=== PATIENT | female | born 1965 | race Caucasian/White ===

== ENCOUNTER 2022-04-10 10:30 | Outpatient (CLI) | payer OTHER, SELFPAY ==
--- OUTSIDE RECORDS SUMMARY | 2022-04-10 10:33 | XMS_ITS | Clinical Summary ---
:1965 Author Organization [employer] [facility] [place] [address] Care Team Providers Name Role Phone Leidy Lopez MD Primary Care Provider [phone] Quiana Mortensen MD Unavailable Allergies Active Allergy Reactions Severity Noted Date Comments Latex Rash 01/30/2017 Penicillins Hives 08/27/2006 Adhesive Tape-Silicones Contact Dermatitis 01/30/2017 Medications Medication Sig Dispensed Refills Start Date End Date Status miscellaneous medical As directed. 1 Each 0 08/24/2018 Active supply miscIndications: Automatic blood Hypertension, pressure cuff, unspecified type large arm cuff, diagnosis I10.0 ketoconazole 2% shampoo Apply topically 1 Bottle 0 08/22/2020 Active (NIZORAL) 2 % to affected shampooIndications: area(s). Lather Hyperparathyroidism (HC) on damp scalp, leave on for 5min, then rinse with water. CPAPIndications: JUAREZ CPAP machine 1 Each 11 02/19/2021 Active (obstructive sleep for home use at apnea) pressure 9 cm/H2O, full face mask x1/3month with a full face cushion x1/mo ergocalciferol (VITAMIN Take 1 Capsule 12 capsule. 3 2 Active D2; DRISDOL) 50,000 unit (50,000 units) capsuleIndications: by mouth every Vitamin D deficiency Thursday and . rosuvastatin (CRESTOR) Take 1 Tablet 90 Tablet 3 12/24/2021 Active 10 mg tabletIndications: (10 mg) by Hyperlipidemia, mouth at unspecified bedtime. hyperlipidemia type triamterene-hydrochlorot Take 1 Capsule 90 Capsule 3 2 Active hiazide, 37.5-25 mg, by mouth every (DYAZIDE) 37.5-25 mg morning. capsuleIndications: Hypertension, unspecified type levothyroxine Take 1 Tablet 90 Tablet 3 12/24/2021 A ctive (SYNTHROID) 75 mcg (75 mcg) by tabletIndications: mouth before Hypothyroidism, breakfast. unspecified type citalopram (CELEXA) 20 Take 1 Tablet 90 Tablet 3 12/24/2021 Active mg tabletIndications: (20 mg) by Depression, major, mouth every single episode, mild morning. (HC) durable medical Custom 1 Each 0 03/11/2022 Act pablo equipment functional (DME)Indications: orthotics for Pronation deformity of pronation, also right foot has drop foot and toe pain Active Problems Problem Noted Date Pap smear for cervical cancer screening 12/24/2021 Overview: Plan: Pap and HPV 12/2026 JUAREZ 01/30/2021 AHI-12 02/19/2021 Hypercalcemia 09/12/2020 Overview: Hypercalcemia: mild, not otherwise speci fied, can't rule out FHH. Evaluation: Clinically: incidental finding during f atigue evaluation. PAST MEDICAL HISTORY: no kidney stones, no fractures. Family history: mom with parathyroid is kianna not otherwise specified. (05-23-20): Calcium 10.6 (07-19-20): Calcium 10.7, PTH 82.2 (08-27-20): Uca 60 (1.7 liters collected) , PTH 100.0, D 33.2, Calcium 10.2 Bone mineral density (08-22-20): T-1.9 sp ine, -0.5 radius. Discussion: The Patient's low Uca (with 1.7 liters collected) leaves open the possible rare diagnosis of benign FHH. Operative intervention can typically be delayed in patients over 50 years of age who are asymptomatic or minimally symptomatic and who have serum calcium concentrations <1.0 mg/dL (0.2 mmol/L) above the upper limit of normal. Plan: repeat Uca (to rule out the rare diagnosis of FHH), with likely monitoring of Calcium at present. A) repeat Uca: as above. B) annual Calcium. Routine adult health maintenance 01/30/2017 Overview: Colonoscopy 01/2017 normal repeat in 10 y ears Lumbar spinal stenosis 10/02/2015 Hypothyroidism 07/31/2015 Generalized anxiety disorder 04/01/2012 Elevated BP without diagnosis of hypertension 10/25/19 09 Anxiety state, unspecified 08/27/2006 Resolved Problems Problem Noted Date Resolved Date Adjustment disorder with anxiety 05/24/2010 011 Elevated BP 07/05/2009 07/05/2009 Hypothyroid 02/17/2008 07/31/2015 Encounters Date Type Specialty Care Team Description 04/01/2022 Telephone Leidy Lopez Questions MD Courtney 03/11/2022 Office Visit Meme Crook DPM Foot Problem (Right foot problems diffic ulty to walking) 03/11/2022 Travel 02/26/2022 Orders Only Lab, [facility] 02/26/2022 Travel 02/12/2022 Telephone Leidy Lopez Medication Management MD Courtney 02/05/2022 Telephone Connor Hawkins AuD Question s (regarding hearing aid cos ts) 01/22/2022 Office Visit Connor Hawkins AuD Hearing Problem 01/22/2022 Travel from Last 3 Months Immunizations Name Administration Dates Next Due AMB Influenza, IIV3 (Age >=3 05/23/2010 years)(Flu Clinic Only) AMB Influenza, IIV4 PF (=>6 mos 04/20/2020, 04/30/2018 Flulaval,Fluzone Fluarix)(Flu Clinic Only) COVID-19 vaccine (Moderna 06/25/2021, 10/23/2020, 09/25/2020 100mcg/0.5mL) PF, MDV Hepatitis A (Adult) 02/04/2008 Influenza, IIV3 (Age >=3 years) 04/17/2011, 05/10/2007, 03/22, 04/16/2005, 05/02/2003 Influenza, IIV4 06/17/2019, 07/20/2017, 05/06/2016 MMR 02/04/2008 Td (Age >=7 Years) 04/06/2003 Tdap 12/07/2013 Typhoid (injectable) 02/04/2008 Family History Medical History Relation Name Comments Psychiatric illness Brother 1 Rashel anxiety - on meds Alcohol/Drug Brother 2 Suhas Alcohol/Drug Father drank daily Cancer Father Lung Heart Disease Father Psychiatric illness Father anxiety trie d to manage it with alcohol Cancer-breast Maternal Aunt Heart Disease Mother CA Hypertension Mother Cancer-breast Paternal Aunt Psychiatric illness Sister 1 Karen anxiety Rheum arthritis Sister 1 Karen Psychiatric illness Sister 2 Radha anxiety - us e to be on meds Psychiatric illness Sister 3 Yuly Depression Psychiatric illness Sister 4 Glory Suicide 2008 Relation Name Status Comments Brother 1 Rashel Brother 2 Suhas Daughter Alive [place] Father (Age 70) Maternal Aunt Maternal Grandfather Maternal Grandmother Mother Alive Paternal Aunt Paternal Grandfather Paternal Grandmother Sister 1 Karen Sister 2 Radha Sister 3 Yuly Sister 4 Glory Son Alive Bret Social History Tobacco Use Types Packs/Day Years Used Date Never Smoker Smokeless Tobacco: Never Used Tobacco Cessation: Counseling Given: Yes Alcohol Use Standard Drinks/Week Comments Not Currently 6 (1 standard drink = 0.6 oz pure alcoho l) Alcohol Habits Answer Date Recorded How often do you have a drink containing alcohol? Monthly or less 11/18/2019 How many drinks containing alcohol do you have on a 1 or 2 11/18/2019 typical day when you are drinking? How often do you have six or more drinks on one Never 01/19/2019 occasion? Comment: Not asked Sex Assigned at Date Recorded Not on file COVID-19 Exposure Response Date Recorded In the last 10 days, have you been in contact with No / Unsu re 03/11/2022 10:40 AM CDT someone who was confirmed or suspected to have Coronavirus/COVID-19? Obstetrics History Para Term AB IAB SAB Ectopic Multiple Living Live Births 4 3 2 1 1 2 Date Outcome GA Total Labor/2nd/3rd Weight Sex Delivery Anes PTL Lorie A 1 A5 Name Clin Labor Term Term Para SAB Last Filed Vital Signs Vital Sign Reading Time Taken Comments Blood Pressure 123/84 12/24/2021 11:15 AM CDT Pulse 84 12/24/2021 11:15 AM CDT Temperature 37 ??C (98.6 ??F) 12/31/2020 12:46 PM CDT Respiratory Rate 16 09/12/2020 2:23 PM CDT Oxygen Saturation 99% 12/24/2021 11:15 AM CDT Inhaled Oxygen Concentration - - Weight 94.4 kg (208 lb 1.6 oz) 12/24/2021 11:15 AM CDT Height 171.5 cm (5' 7.5) 12/24/2021 11:15 AM CDT Body Mass Index 32.11 12/24/2021 11:15 AM CDT Plan of Treatment Health Maintenance Due Date Last Done Comments Zoster (shingles) series for age 1206/01/2015 50+ (1 of 2) COVID-19 vaccine series (4 - 08/20/2021 06/25/2021, 021, Booster for Moderna series) 09/25/2020 Influenza for age 50-64 02/20/2022 04/20/2020, 06/17/2019, 04/30/2018, Additional history exists Mammogram for age 45-75 09/13/2022 09/13/2021, 05/03/2020, 10/27/2018, Additional history exists BMI (ht and wt on same day) for 12/24/2022 12/24/2021, 12/21, age 18+ 12/31/2020, Additional history exists Depression screening for age 12+ 12/24/2022 12/24/2021, 05/2021, 03/04/2018, Additional history exists Tetanus booster 12/08/2023 12/07/2013, 04/06/2003 Pap test for age 21-65 12/24/2026 12/24/2021, 12/24/2021, 05/24/2020, Additional history exists Colonoscopy through age 75 01/30/2027 01/30/2017, 7, 01/30/2017 Lipids for age 45-75 02/26/2027 02/26/2022, 12/20/2021, 05/23/2020, Additional history exists Tdap Completed 12/07/2013 Hepatitis C screening for age Completed 05/23/2020 18-79 Procedures Procedure Name Priority Date/Time Associated Diagnosis Comme nts HEMOGLOBIN A1C Routine 02/26/2022 8:37 AM Family history of Re sults for this SCREENING CDT diabetes mellitus procedure are in the results section. LIPID PANEL W Routine 02/26/2022 8:37 AM Hyperlipidemia, Resul ts for this REFLEX MEASURED LDL CDT unspecified procedur e are in hyperlipidemia type the resu lts section. GLUCOSE, FASTING Routine 02/26/2022 8:37 AM Family history of Results for this CDT diabetes mellitus procedure are in the results section. from Last 3 Months Results HEMOGLOBIN A1C SCREENING (02/26/2022 8:37 AM CDT) athologist Signature HEMOGLOBIN A1C 5.1 <=6.4 % 02/27/2022 [facility] SCREENING 11:06 AM CDT LABORATORY[facility] Specimen Anatomical Collection Method / Collection Time Recei anita Time (Source) Location / Volume Laterality Blood BLOOD SPECIMEN / Venipuncture / 02/26/2022 8:37 2021 8:41 Unknown Unknown AM CDT AM CDT Narrative [facility] - 02/27/2022 11:06 AM CDT ? (<5.7%) ?Normal ? (5.7% to 6.4%) ? Indicates pr ediabetes ? (>=6.5%) ? Confirms diabetes Falsely low levels may be seen with: Recent Transfusion, Recent Significant B lood Loss, Hemolytic Diseases, or Falsely elevated levels may be seen with : Untreated Anemias, Splenectomy Leidy Lopez MD CHEMISTRY Performing Organization Address City/State/ZIP Code Phon e Number [facility] [address] [place] [address] LABORATORY-[facility]EN[facility] 2000 LABORATORY LIPID PANEL W REFLEX MEASURED LDL (02/26/2022 8:37 AM CDT) [facility] Method Time Signature CHOLESTEROL,TOTAL 175 100 - 199 02/26/2022 [id number] [facility] TH mg/dL 6:17 PM CDT LABORATORY-[facility] TRIGLYCERIDES 115 <150 02/26/2022 [facility] mg/dL 6:17 PM CDT [facility]ATORY[facility] HDL CHOLESTEROL 47 >40 mg/dL 02/26/2022 [facility] 6:17 PM CDT [facility]AT[facility] NON-HDL 128 <145 02/26/2022 [facility] CHOLESTEROL mg/dl 6:17 PM CDT [facility]ATORY[facility] CHOL/HDL RATIO 3.72 <4.50 02/26/2022 [facility] 6:17 PM CDT [facility] LDL CHOLESTEROL 105 <=130 02/26/2022 [facility] mg/dL 6:17 PM CDT [facility]AT[facility] VLDL CHOLESTEROL 23 <=30 02/26/2022 [facility] mg/dL 6:17 PM CDT [facility] PROVIDER ORDERED RANDOM 02/26/2022 [facility] STATUS 6:17 PM CDT [facility] Specimen Anatomical Collection Method / Collection Time Recei anita Time (Source) Location / Volume Laterality Blood BLOOD SPECIMEN / Venipuncture / 02/26/2022 8:37 2021 8:41 Unknown Unknown AM CDT AM CDT Leidy Lopez MD CHEMISTRY Performing Organization Address City/State/ZIP Code Phon e Number [facility] [address] [place] [id number] LABORATORY-[facility]EN[facility] 2000 LABORATORY GLUCOSE, FASTING (02/26/2022 8:37 AM CDT) P athologist Signature GLUCOSE 94 65 - 100 02/26/2022 [facility] mg/dL 8:56 AM CDT [facility] Specimen Anatomical Collection Method / Collection Time Recei anita Time (Source) Location / Volume Laterality Blood BLOOD SPECIMEN / Venipuncture / 02/26/2022 8:37 2021 8:41 Unknown Unknown AM CDT AM CDT Leidy Lopez MD CHEMISTRY Performing Organization Address City/State/ZIP Code Phon e Number [facility] [address] [place] [address] from Last 3 Months Insurance Payer Benefit Plan Subscriber ID Effective Dates Phone Address Type / Group [employer] [id number] Effective for [phone] [address] [employer] INS all dates [address] [place] [address] [place] [id number] 2019-Pres [employer] [address] [place] [phone] [address] (Home) [place] [address] Neha Sanches Motor Vehicle Self 1965 [address] (Home) [place] [id number] Care Teams [employer] 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
--- NOTE | 2022-04-10 10:45 | CRLHL7_ITS ---
For Patients: As a result of the Century Cures Act, medical imaging exams and procedure reports are released immediately into your electronic medical record. You may view this report before your referring provider. If you have questions, please contact your health care provider. INDICATION: post-menopausal bleeding COMPARISON: none TECHNIQUE: 2D brown scale and color Doppler images were acquired of the pelvis using a transabdominal and transvaginal approach. FINDINGS: Sonographic images demonstrate a normal size and smooth outer contour of the uterus. Uterus measures 6.5 cm in length by 2.8 cm in AP diameter by 4.9 cm in transverse dimension. The myometrium has a normal uniform echotexture. The endometrial lining measures 5 mm in composite thickness. The right ovary measures 1.1 x 0.7 x 0.6 cm in size and the left ovary measures 1.9 x 0.9 x 1.8 cm. The ovaries demonstrate normal arterial and venous blood flow on color Doppler analysis. There are no suspicious fluid collections within the cul-de-sac. IMPRESSION: Endometrial thickness 5 millimeters. Dictated by Suhas Dash MD @ 04/10/2022 11:47:09 AM (Electronically Signed)
== END 2022-04-10 10:31 | disposition home or self-care (01) ==
LOC: US 10:31
PROVIDERS: PCP Family Medicine; Visit Provider Physician Assistant
DX: N95.0 Postmenopausal bleeding (principal); R93.89 Abnormal findings on diagnostic imaging of other specified body structures
CPT/HCPCS: 76830; 76856

== ENCOUNTER 2023-05-12 13:00 | Outpatient (RCR) | payer OTHER, SELFPAY | END 2023-05-12 13:34 | disposition home or self-care (01) | PROVIDERS: PCP Family Medicine; Visit Provider Dentist | DX: M26.622 Arthralgia of left temporomandibular joint (principal); Z74.09 Other reduced mobility; Z51.89 Encounter for other specified aftercare | CPT/HCPCS: 97110; 97140; 97161 ==

== ENCOUNTER 2023-07-15 14:15 | Outpatient (RCR) | payer OTHER, SELFPAY | END 2023-10-07 11:31 | disposition home or self-care (01) | PROVIDERS: PCP Family Medicine; Visit Provider Family Medicine | DX: S03.40XS Sprain of jaw, unspecified side, sequela (principal); M26.602 Left temporomandibular joint disorder, unspecified; Z51.89 Encounter for other specified aftercare | CPT/HCPCS: 97110; 97140; 97161 ==